=== PATIENT | male | born 1940 | race Asian ===

== ENCOUNTER 2020-12-08 17:25 | Inpatient (IN) | payer MEDICARE, OTHER ==
[~2020-12-08] VITALS: Ht 165.1 cm; Wt 72.6 kg
--- NOTE | 2020-12-08 17:44 | NUR ---
CALLED [facility] [phone] NERI ASHRAF SENT PT PER MEAGHAN SCHWARTZ FOR EVAL.
--- NOTE | 2020-12-08 18:40 | NUR ---
TO ER BED 11,NO APPARENT CHANGE IN CONDITION
[2020-12-08 19:10] LABS: BASOPHILS % (AUTO) 0.6 % (0.0-2.0); EOSINOPHILS % (AUTO) 2.1 % (0.0-6.0); HEMATOCRIT 38 % (33-45); HEMOGLOBIN 12.4 g/dL (11.5-14.8); LYMPHOCYTES # (AUTO) 1.7 K/uL (0.8-4.8); LYMPHOCYTES % (AUTO) 25.6 % (20.0-44.0); MEAN CORPUSCULAR HGB CONC 33 g/dl (31.0-36.0); MEAN CORPUSCULAR VOLUME 92 fL (82-100); MONOCYTES # (AUTO) 0.6 K/uL (0.1-1.30); MONOCYTES % (AUTO) 8.3 % (2.0-12.0); NEUTROPHILS # (AUTO) 4.3 K/uL (1.8-8.9); NEUTROPHILS % (AUTO) 63.4 % (43.0-81.0); PLATELET COUNT (AUTO) 249 K/uL (150-450); RED BLOOD CELL COUNT(AUTO) 4.06 MIL/uL (4.0-5.2); WHITE BLOOD COUNT (AUTO) 6.8 K/uL (4.3-11.0)
[2020-12-08 19:28] LABS: CALCIUM, SERUM 8.6 mg/dL (8.5-10.1); CARBON DIOXIDE 23 mmol/L (21-32); CHLORIDE 106 mmol/L (98-107); CREATININE 1.1 mg/dL (0.6-1.3); GLUCOSE 107 mg/dL (74-106); POTASSIUM 3.9 mmol/L (3.5-5.1); SODIUM SERUM 141 mmol/L (136-145); UREA NITROGEN, BLOOD 13 mg/dL (7-18)
[2020-12-08 19:34] LABS: ALANINE AMINOTRANSFERASE 22 U/L (12-78); ALCOHOL, BLOOD < 3 mg/dL (0-0); ALKALINE PHOSPHATASE 69 U/L (46-116); ASPARTATE AMINOTRANSFERASE 17 U/L (15-37); BILIRUBIN,DIRECT 0.1 mg/dL (0.0-0.2); BILIRUBIN,TOTAL 0.3 mg/dL (0.2-1.0); TOTAL PROTEIN, SERUM 7.5 g/dL (6.4-8.2)
[2020-12-08 19:35] LABS: ACETAMINOPHEN < 2 ug/ml (10-30)
--- NOTE | 2020-12-08 19:38 | NUR ---
pt resting comofrtably in bed breathing even and unlabored vital signs stable
--- NOTE | 2020-12-08 20:02 | NUR ---
URINE SENT TO LAB
[2020-12-08 20:11] LABS: BILIRUBIN,URINE Negative (NEGATIVE); COLOR,URINE YELLOW (YELLOW); LEUKOCYTE ESTERASE ,URINE Negative (NEGATIVE); NITRITE, URINE Negative (NEGATIVE); PROTEIN,URINE Negative (NEGATIVE); UGLUCOSE Negative (NEGATIVE); UROBILINOGEN,URINE 0.2 EU/dL (0.2)
[2020-12-08] MEDS ORDERED: LORAZEPAM INJ 2 MG/ML VIAL ONE (21:56)
[2020-12-08] MEDS ORDERED: LORAZEPAM INJ 2 MG/ML VIAL IM ONE (22:00)
[2020-12-09] MEDS ORDERED: LORAZEPAM INJ 2 MG/ML VIAL ONE (04:48)
[2020-12-09] MEDS ORDERED: LORAZEPAM INJ 2 MG/ML VIAL IM ONE (05:00)
[2020-12-09] MEDS ORDERED: ZIPRASIDONE MESYLATE 20 MG/VIAL VIAL IM ONE ×2 (06:47→07:00)
[2020-12-09] MEDS ORDERED: ASPI-1169 PO (07:43)
[2020-12-09] MEDS ORDERED: SERT25TA5 PO (07:43)
[2020-12-09] MEDS ORDERED: FOLI0.4T6 PO (07:43)
[2020-12-09] MEDS ORDERED: NA P133E RC (07:43)
[2020-12-09] MEDS ORDERED: ACET-868 PO (07:43)
[2020-12-09] MEDS ORDERED: TAMS-12 PO (07:43)
[2020-12-09] MEDS ORDERED: ICOS1CAP PO (07:43)
[2020-12-09] MEDS ORDERED: OLME20TA13 PO (07:43)
[2020-12-09] MEDS ORDERED: ATOR10TA PO (07:43)
[2020-12-09] MEDS ORDERED: BISA10SU11 RC (07:43)
[2020-12-09] MEDS ORDERED: RISP0.2515 PO (07:43)
[2020-12-09] MEDS ORDERED: MAGN400O6 PO (07:43)
[2020-12-09] MEDS ORDERED: CHOL100062 PO (07:43)
[2020-12-09] MEDS ORDERED: FINA5TAB11 PO (07:43)
[2020-12-09] MEDS ORDERED: CRAN425C6 PO (07:43)
[2020-12-09] MEDS ORDERED: PANT40TA2 PO (07:43)
[2020-12-09] MEDS ORDERED: AMLO10TA4 PO (07:43)
[2020-12-09] MEDS ORDERED: LABE100T5 PO (07:43)
[2020-12-09] MEDS ORDERED: LORA-259 PO (07:43)
[2020-12-09] MEDS ORDERED: DIVA125C2 PO (07:43)
[2020-12-09] MEDS ORDERED: DOCU-141 PO (07:43)
--- NOTE | 2020-12-09 08:14 | NUR ---
report given to hipolito caruso. awaiting transfer to floor.
[2020-12-09] MEDS ORDERED: MAGNESIUM HYDROXIDE 30 ML UDC PO PRN (08:30)
[2020-12-09] MEDS ORDERED: MAG HYDROX/AL HYDROX/SIMETH 30 ML UDC PO PRN (08:30)
[2020-12-09] MEDS ORDERED: BLOOD SUGAR DIAGNOSTIC 1 EACH STRIP IN ONE (08:30)
--- NOTE | 2020-12-09 08:32 | NUR ---
PATIENT TRANSFERRED TO FLOOR IN STABLE CONDITION.
--- NOTE | 2020-12-09 10:44 | NUR ---
Treatment Plan: Pt appeared very confused and demented. Pt refused to sign.
--- NOTE | 2020-12-09 11:26 | NUR ---
RN-CO: ADMITTING NOTES., PT CAME [facility] ER, [facility]. Patient per hold and upon face to face evaluation is confuse, disorganize and disoriented. He is agitated, restless, yelling , threw himself on the floor. Pt is unable to follow directions due to confusion.At times he doesn't even reply when called. Ativan 1 mg PO given for restlessness. Dr Colorado seen and examined patient with orders noted and carried out. Son was notified upon his admission. Pt right now is unable to understand simple instructions due to his mental state. Pt's rights was discussed to his son. We will orient pt often to his surroundings. Fashion Consultant is aware that pt is in the unit. Advisement was served and skin assessment was done. We will moniotr q 15 min and ensure pt's safety.
[2020-12-09] MEDS: SERTRALINE HCL 25 MG TABLET PO SCH (11:48)
[2020-12-09] MEDS: GABAPENTIN 100 MG CAPSULE PO SCH ×2 (11:48→21:16)
--- NOTE | 2020-12-09 11:48 | NUR ---
RN-CO: DR BYERS NOTIFIED ABOUT THE ADMISSION AND WAS REQUESTED TO [facility].
[2020-12-09] MEDS: LORAZEPAM 0.5 MG TABLET PO PRN ×2 (13:33→19:45)
[2020-12-09] MEDS ORDERED: OLANZAPINE 10 MG VIAL IM STA (14:04)
--- NOTE | 2020-12-09 14:04 | NUR ---
RN-CO: PT REMAINS AGITATED , BANGING CHAIR AND SCREAMING DESPITE THE ATIVAN GIVEN TO HIM AROUND [address] FERNANDO NOTIFIED AND ORDERED ZYPREXA 5 MG IM STAT, NOTED.
--- NOTE | 2020-12-09 14:42 | NUR ---
SNF Contact: SW spoke with Teresa castellon ([phone]) from [facility] who stated that pt is welcomed back upon discharge.
--- NOTE | 2020-12-09 15:47 | NUR ---
MARAL Family Contact: Senia clinical social worker conducted assessment and brother Sheree ([phone]) requested for SW to speak to patient's daughter Chemo Jones ([phone]). SW notified daughter Chemo in regards to pt's admission and discussed treatment/discharge plan.
[2020-12-09 16:00] VITALS: BP 163/89
--- NOTE | 2020-12-09 16:15 | NUR ---
Initial; Discharge Plan: Pt. currently resides at [facility] [[address] [facility], [place] [address]; ]. Pt. at this time is unable to state if he would like to return there. Per son, Sheree, the family would prefer [facility] as they have family that works there and pt. feels at ease knowing he has family there. SW will continue to collaborate with psychiatrist to plan a safe & proper DC.
[2020-12-09] MEDS: risperiDONE 0.25 MG TABLET PO SCH (16:23)
--- NOTE | 2020-12-09 17:19 | NUR ---
RN-CO: DOC Navdeep NOTIFIED TO [facility].
[2020-12-09] MEDS: LABETALOL HCL (100MG) 100 MG TABLET PO SCH ×2 (18:30→18:55)
[2020-12-09] MEDS ORDERED: BISACODYL SUPP (10 MG) 10 MG/SUPP.RECT SUPP.RECT RC PRN (18:30)
[2020-12-09] MEDS: ASPIRIN 81 MG TAB.CHEW PO SCH (18:43)
[2020-12-09] MEDS: TAMSULOSIN 0.4 MG CAP.SR.24H PO SCH (18:44)
[2020-12-09] MEDS: DOCUSATE SODIUM 100 MG CAPSULE PO SCH (18:44)
[2020-12-09] MEDS: PANTOPRAZOLE 40 MG TABLET.DR PO SCH (18:44)
--- NOTE | 2020-12-09 18:49 | NUR ---
[facility] DONE BOTH NARES.
--- NOTE | 2020-12-09 19:45 | NUR ---
GPS-RN NOTES: ANXIETY PATIENT IS ANXIOUS AND RESTLESS. PRN ATIVAN 1MG PO GIVEN ORDERED. WILL CONTINUE TO MONITOR FOR PT'S SAFETY.
[2020-12-09 20:00] VITALS: BP 151/91
[2020-12-09] MEDS: ATORVASTATIN 10 MG TABLET PO SCH (21:09)
[2020-12-09] MEDS: ZOLPIDEM TARTRATE 5 MG TABLET PO PRN (21:47)
--- NOTE | 2020-12-09 21:47 | NUR ---
GPS-RN NOTES: INSOMNIA PATIENT C/O INABILITY TO SLEEP. PRN AMBIEN 5MG PO ORDERED. WILL CONTINUE TO MONITOR.
--- NOTE | 2020-12-09 22:38 | NUR ---
GPS-RN NOTES: CHEMICAL RESTRAINT PATIENT REMAINS AGITATED, SCREAMING AND YELLING, UNABLE TO REDIRECT BEHAVIOR. DR. FERNANDO NOTIFIED OF PATIENT'S BEHAVIOR AND ORDERED ZYPREXA 10MG IM STAT X ONE, ORDER NOTED AND CARRIED OUT. CHARGE NURSE MADE AWARE. Addendum: 12/09/20 at 9325 by REGINE EVERETT RN PATIENT IS ANXIOUS AND RESTLESS.
[2020-12-09] MEDS ORDERED: OLANZAPINE 10 MG VIAL IM ONE (23:00)
[2020-12-10 08:00] VITALS: BP 143/82
[2020-12-10] MEDS: SERTRALINE HCL 25 MG TABLET PO SCH (08:19)
[2020-12-10] MEDS: GABAPENTIN 100 MG CAPSULE PO SCH ×2 (08:19→21:13)
[2020-12-10] MEDS: risperiDONE 0.25 MG TABLET PO SCH ×2 (08:19→17:01)
[2020-12-10] MEDS: PANTOPRAZOLE 40 MG TABLET.DR PO SCH (08:19)
[2020-12-10] MEDS: FINASTERIDE (5 MG) 5 MG TABLET PO SCH (08:23)
[2020-12-10] MEDS: FOLIC ACID 1 MG TABLET PO SCH (08:23)
[2020-12-10] MEDS: LOSARTAN POTASSIUM 50 MG TABLET PO SCH (08:23)
[2020-12-10] MEDS: CHOLECALCIFEROL 1,000 UNIT TABLET (VIT D3) PO SCH (08:23)
[2020-12-10] MEDS: AMLODIPINE BESYLATE 10 MG TABLET PO SCH (08:23)
[2020-12-10] MEDS: LABETALOL HCL (100MG) 100 MG TABLET PO SCH ×2 (08:24→17:02)
--- NOTE | 2020-12-10 09:00 | NUR ---
RN NOTE- PT AGITATED AT TIMES CONFUSED LABILE NOT DIRECTABLE MED COMPLIANT
[2020-12-10] MEDS: LORAZEPAM 0.5 MG TABLET PO PRN ×2 (10:01→19:52)
--- NOTE | 2020-12-10 10:01 | NUR ---
RN NOTE- SCREAMING AGITATED. ATIVAN 1 MG GIVEN
[2020-12-10 13:41] LABS: ALBUMIN 4.4 g/dL (3.4-5.0); BILIRUBIN,TOTAL 0.5 mg/dL (0.2-1.0); CALCIUM, SERUM 9.1 mg/dL (8.5-10.1); CREATININE 1.3 mg/dL (0.6-1.3); POTASSIUM 3.9 mmol/L (3.5-5.1); TOTAL PROTEIN, SERUM 8.4 g/dL (6.4-8.2)
[2020-12-10 13:54] LABS: CHOLESTEROL 190 mg/dL (<200); HDL CHOLESTEROL 64 mg/dL (40-60); LDL 102 mg/dL (0-99); TRIGLYCERIDES 121 mg/dL (30-150)
[2020-12-10 16:00] VITALS: BP 131/62
[2020-12-10] MEDS: TAMSULOSIN 0.4 MG CAP.SR.24H PO SCH (17:01)
[2020-12-10] MEDS: DOCUSATE SODIUM 100 MG CAPSULE PO SCH (17:01)
[2020-12-10] MEDS: ASPIRIN 81 MG TAB.CHEW PO SCH (17:07)
--- NOTE | 2020-12-10 19:45 | NUR ---
RN NOTE: REFUSED VITALS PATIENT IS AGITATED, ANXIOUS & RESTLESS, REFUSED TO CHECK VITALS, CONFUSED, UNCOOPERATIVE, NON COMPLAINT. PATIENT CONTINUED TO REFUSE VITALS DESPITE OF RISKS & BENEFITS EXPLANATIONS. WILL CONTINUE TO MONITOR.
--- NOTE | 2020-12-10 19:45 | NUR ---
RN NOTE PATIENT'S SON & VISITING HIM AT THIS TIME. PATIENT IS GETTING AGITATED, SCREAMING, LOUD, RESTLESS & ANXIOUS TOWARDS FAMILY. OFFERED PO FLUIDS TO THE PATIENT BROUGHT BY FAMILY, PATIENT TAKING TIME TO DRINK IT & GETS AGITATED INTERMITTENTLY. FAMILY HAS DECIDED TO LEAVE SOON DUE TO PATIENT'S INCREASING AGITATION. WILL CONTINUE TO MONITOR THE PATIENT CLOSELY.
--- NOTE | 2020-12-10 19:55 | NUR ---
RN NOTE: ANXIETY/AGITATION PATIENT IS VERY ANXIOUS, RESTLESS, AGITATED, SCREAMING, YELLING, NON REDIRECTABLE. PRN ATIVAN 1 MG PO ADMINISTERED. WILL CONTINUE TO MONITOR.
[2020-12-10 20:00] VITALS: BP 130/60
[2020-12-10] MEDS: ATORVASTATIN 10 MG TABLET PO SCH (21:46)
[2020-12-10] MEDS: ZOLPIDEM TARTRATE 5 MG TABLET PO PRN (22:09)
--- NOTE | 2020-12-10 22:10 | NUR ---
GPS-RN NOTES: INSOMNIA PATIENT IS UNABLE TO SLEEP. PRN AMBIEN 5MG PO ADMINISTERED ORDERED. WILL CONTINUE TO MONITOR.
[2020-12-10] MEDS ORDERED: OLANZAPINE 10 MG VIAL IM ONE (23:00)
--- NOTE | 2020-12-10 23:18 | NUR ---
GPS/RN NOTE: CHEMICAL RESTRAINT/ZYPREXA IM ONCE PATIENT IS EXTREMELY AGITATED, SCREAMING, YELLING, ANXIOUS, EXTREMELY RESTLESS, OFFERED PO FLUIDS & SNACKS. UNABLE TO REDIRECT PATIENT'S BEHAVIOR. DR. FERNANDO NOTIFIED OF PATIENT'S BEHAVIOR AND ORDERED ZYPREXA 10MG IM STAT X ONE, ORDER NOTED AND CARRIED OUT. CHARGE NURSE IS AWARE. WILL CONTINUE TO MONITOR THE PATIENT FOR ANY CHANGE OF CONDITION.
--- NOTE | 2020-12-11 03:13 | NUR ---
RN NOTE PATIENT HAS BEEN SLEEPING COMFORTABLY SINCE ZYPREXA 10 MG IM ONCE WAS ADMINISTERED. WILL CONTINUE TO MONITOR.
--- NOTE | 2020-12-11 06:53 | NUR ---
RN NOTE PATIENT IS STILL ASLEEP, NO BEHAVIOR EPISODE NOTED AT THIS TIME. WILL ENDORSE TO AM RN FOR CONTINUITY OF CARE.
[2020-12-11] MEDS: CHOLECALCIFEROL 1,000 UNIT TABLET (VIT D3) PO SCH (08:21)
[2020-12-11] MEDS: FINASTERIDE (5 MG) 5 MG TABLET PO SCH (08:21)
[2020-12-11] MEDS: AMLODIPINE BESYLATE 10 MG TABLET PO SCH (08:22)
[2020-12-11] MEDS: LOSARTAN POTASSIUM 50 MG TABLET PO SCH (08:22)
[2020-12-11] MEDS: GABAPENTIN 100 MG CAPSULE PO SCH ×2 (08:22→20:10)
[2020-12-11] MEDS: risperiDONE 0.25 MG TABLET PO SCH ×2 (08:22→17:00)
[2020-12-11] MEDS: FOLIC ACID 1 MG TABLET PO SCH (08:22)
[2020-12-11] MEDS: PANTOPRAZOLE 40 MG TABLET.DR PO SCH (08:22)
[2020-12-11] MEDS: SERTRALINE HCL 25 MG TABLET PO SCH (08:22)
[2020-12-11] MEDS: LABETALOL HCL (100MG) 100 MG TABLET PO SCH ×2 (08:23→17:00)
--- NOTE | 2020-12-11 09:00 | NUR ---
RN NOTE- ASLEEP AT THIS TIME PT AGITATED AT TIMES CONFUSED WHEN AWAKE
[2020-12-11 09:59] VITALS: BP 146/70
--- NOTE | 2020-12-11 15:05 | NUR ---
RN NOTE- PT AWAKE, ATTEMPTED TO GIVE FOOD FLUIDS RX. PT STRUCK OUT, SCREAMING NOT DIRECTABLE. DR FERNANDO ORDERED ZYPREXA 10 IM STAT
[2020-12-11] MEDS ORDERED: OLANZAPINE 10 MG VIAL IM STA (15:17)
--- NOTE | 2020-12-11 15:30 | NUR ---
RN NOTE- ZYPREXA 10 MG IM GIVEN
--- NOTE | 2020-12-11 17:10 | NUR ---
RN NOTE- PT W CONTINUED SCREAMING OVER AND OVER DISRUPTING PATIENTS AND UNIT. DR FERNANDO ORDERED ATIVAN 1 MG IM STAT
--- NOTE | 2020-12-11 17:30 | NUR ---
RN NOTE- ATIVAN 1 MG IM ADMINISTERED
[2020-12-11] MEDS ORDERED: LORAZEPAM INJ 2 MG/ML VIAL IM STA (17:32)
[2020-12-11] MEDS: ASPIRIN 81 MG TAB.CHEW PO SCH (17:52)
[2020-12-11] MEDS: DOCUSATE SODIUM 100 MG CAPSULE PO SCH (17:52)
[2020-12-11] MEDS: TAMSULOSIN 0.4 MG CAP.SR.24H PO SCH (17:53)
[2020-12-11 20:27] VITALS: BP 143/94
[2020-12-11] MEDS: ATORVASTATIN 10 MG TABLET PO SCH (21:06)
[2020-12-11] MEDS: LORAZEPAM 0.5 MG TABLET PO PRN (23:13)
--- NOTE | 2020-12-11 23:13 | NUR ---
RN NOTE: ANXIETY/AGITATION PT APPEARED VERY ANXIOUS, AGITATED, AND RESTLESS. ADMINISTERED ATIVAN 1 MG PO PRN PER ORDER. WILL CONTINUE TO MONITOR PT CLOSELY.
[2020-12-12] MEDS: PANTOPRAZOLE 40 MG TABLET.DR PO SCH (07:30)
[2020-12-12 08:00] VITALS: BP 155/62
[2020-12-12] MEDS: GABAPENTIN 100 MG CAPSULE PO SCH ×2 (09:00→21:03)
[2020-12-12] MEDS: FOLIC ACID 1 MG TABLET PO SCH (09:00)
[2020-12-12] MEDS: FINASTERIDE (5 MG) 5 MG TABLET PO SCH (09:00)
[2020-12-12] MEDS: CHOLECALCIFEROL 1,000 UNIT TABLET (VIT D3) PO SCH (09:00)
[2020-12-12] MEDS: risperiDONE 0.25 MG TABLET PO SCH (09:00)
[2020-12-12] MEDS: SERTRALINE HCL 25 MG TABLET PO SCH (09:00)
--- NOTE | 2020-12-12 10:00 | NUR ---
YELLING OUT CONTINUALLY,NOT COOPERATIVE WITH TAKING MEDS.DR. FERNANDO HERE ON THE FLOOR.INJECTION ORDERED.
--- NOTE | 2020-12-12 10:18 | NUR ---
GIVEN INJECTION OF BENADRYL AND HALDOL PER ORDERS.
[2020-12-12] MEDS ORDERED: diphenhydrAMINE HCL 50 MG/ML VIAL IM ONE ×2 (10:30)
[2020-12-12] MEDS ORDERED: HALOPERIDOL LACTATE INJ 5 MG/ML VIAL IM ONE ×2 (10:30)
[2020-12-12] MEDS: clonazePAM 0.5 MG TABLET PO SCH ×2 (12:16→17:00)
[2020-12-12] MEDS: LABETALOL HCL (100MG) 100 MG TABLET PO SCH ×2 (12:55→17:00)
[2020-12-12] MEDS: AMLODIPINE BESYLATE 10 MG TABLET PO SCH (12:56)
[2020-12-12] MEDS: LOSARTAN POTASSIUM 50 MG TABLET PO SCH (12:57)
[2020-12-12 16:00] VITALS: BP 135/71
[2020-12-12] MEDS: OLANZAPINE ZYDIS 5 MG TAB.RAPDIS PO SCH (17:00)
[2020-12-12] MEDS: ASPIRIN 81 MG TAB.CHEW PO SCH (18:00)
[2020-12-12] MEDS: DOCUSATE SODIUM 100 MG CAPSULE PO SCH (18:00)
[2020-12-12] MEDS: TAMSULOSIN 0.4 MG CAP.SR.24H PO SCH (18:00)
--- NOTE | 2020-12-12 18:05 | NUR ---
RN-NOTES PATIENT REFUSED ALL 1700 MEDICATIONS ,SCREAMING AND YELLING,ALSO REFUSED TO EAT DINNER BUT ABLE TO DRINK WATER. OFFERED X3.
[2020-12-12 19:37] VITALS: BP 109/59
[2020-12-12] MEDS: LORAZEPAM 0.5 MG TABLET PO PRN (20:18)
[2020-12-12] MEDS: ATORVASTATIN 10 MG TABLET PO SCH (21:03)
[2020-12-12] MEDS: ZOLPIDEM TARTRATE 5 MG TABLET PO PRN (21:09)
[2020-12-13] MEDS: LORAZEPAM 0.5 MG TABLET PO PRN ×2 (03:04→22:31)
[2020-12-13] MEDS: PANTOPRAZOLE 40 MG TABLET.DR PO SCH (07:30)
[2020-12-13 08:00] VITALS: BP 139/52
[2020-12-13] MEDS: AMLODIPINE BESYLATE 10 MG TABLET PO SCH ×2 (09:33→12:40)
[2020-12-13] MEDS: OLANZAPINE ZYDIS 5 MG TAB.RAPDIS PO SCH ×3 (09:34→16:31)
[2020-12-13] MEDS: GABAPENTIN 100 MG CAPSULE PO SCH ×3 (09:34→21:04)
[2020-12-13] MEDS: clonazePAM 0.5 MG TABLET PO SCH ×4 (09:34→16:27)
[2020-12-13] MEDS: FINASTERIDE (5 MG) 5 MG TABLET PO SCH ×2 (09:34→12:40)
[2020-12-13] MEDS: CHOLECALCIFEROL 1,000 UNIT TABLET (VIT D3) PO SCH ×2 (09:34→12:40)
[2020-12-13] MEDS: LOSARTAN POTASSIUM 50 MG TABLET PO SCH ×2 (09:34→12:40)
[2020-12-13] MEDS: FOLIC ACID 1 MG TABLET PO SCH ×2 (09:34→12:40)
[2020-12-13] MEDS: LABETALOL HCL (100MG) 100 MG TABLET PO SCH ×3 (09:36→16:55)
[2020-12-13 16:00] VITALS: BP 129/56
[2020-12-13] MEDS: ASPIRIN 81 MG TAB.CHEW PO SCH (16:32)
[2020-12-13] MEDS: DOCUSATE SODIUM 100 MG CAPSULE PO SCH (17:24)
[2020-12-13] MEDS: TAMSULOSIN 0.4 MG CAP.SR.24H PO SCH (17:24)
[2020-12-13 19:30] VITALS: BP 128/64
[2020-12-13] MEDS: ATORVASTATIN 10 MG TABLET PO SCH (21:04)
[2020-12-13] MEDS: ZOLPIDEM TARTRATE 5 MG TABLET PO PRN (23:27)
[2020-12-14] MEDS: PANTOPRAZOLE 40 MG TABLET.DR PO SCH (07:30)
[2020-12-14 08:00] VITALS: BP 148/69
[2020-12-14] MEDS: LOSARTAN POTASSIUM 50 MG TABLET PO SCH (08:23)
[2020-12-14] MEDS: GABAPENTIN 100 MG CAPSULE PO SCH ×2 (08:23→21:26)
[2020-12-14] MEDS: FOLIC ACID 1 MG TABLET PO SCH (08:23)
[2020-12-14] MEDS: clonazePAM 0.5 MG TABLET PO SCH (08:23)
[2020-12-14] MEDS: AMLODIPINE BESYLATE 10 MG TABLET PO SCH (08:23)
[2020-12-14] MEDS: LABETALOL HCL (100MG) 100 MG TABLET PO SCH ×2 (08:24→16:33)
[2020-12-14] MEDS: FINASTERIDE (5 MG) 5 MG TABLET PO SCH (08:24)
[2020-12-14] MEDS: OLANZAPINE ZYDIS 5 MG TAB.RAPDIS PO SCH ×2 (08:24→16:34)
[2020-12-14] MEDS: CHOLECALCIFEROL 1,000 UNIT TABLET (VIT D3) PO SCH (08:24)
[2020-12-14 16:00] VITALS: BP 147/76
[2020-12-14] MEDS: ASPIRIN 81 MG TAB.CHEW PO SCH (17:03)
[2020-12-14] MEDS: TAMSULOSIN 0.4 MG CAP.SR.24H PO SCH (17:03)
[2020-12-14] MEDS: DOCUSATE SODIUM 100 MG CAPSULE PO SCH (17:03)
[2020-12-14 20:00] VITALS: BP 148/78
[2020-12-14 20:10] VITALS: BP 148/78
[2020-12-14] MEDS: ATORVASTATIN 10 MG TABLET PO SCH (21:26)
[2020-12-14] MEDS: ZOLPIDEM TARTRATE 5 MG TABLET PO PRN (22:07)
--- NOTE | 2020-12-14 22:07 | NUR ---
RN NOTE: INSOMNIA PATIENT IS UNABLE TO SLEEP, RESTLESS & ANXIOUS AT THIS TIME. PRN AMBIEN 5MG PO ADMINISTERED ORDERED. WILL CONTINUE TO MONITOR.
[2020-12-15] MEDS: PANTOPRAZOLE 40 MG TABLET.DR PO SCH (07:45)
[2020-12-15 08:00] VITALS: BP 115/55
[2020-12-15] MEDS: FOLIC ACID 1 MG TABLET PO SCH (08:23)
[2020-12-15] MEDS: FINASTERIDE (5 MG) 5 MG TABLET PO SCH (08:24)
[2020-12-15] MEDS: GABAPENTIN 100 MG CAPSULE PO SCH ×2 (08:24→21:05)
[2020-12-15] MEDS: LOSARTAN POTASSIUM 50 MG TABLET PO SCH (08:26)
[2020-12-15] MEDS: LABETALOL HCL (100MG) 100 MG TABLET PO SCH ×2 (08:27→17:08)
[2020-12-15] MEDS: AMLODIPINE BESYLATE 10 MG TABLET PO SCH (08:27)
[2020-12-15] MEDS: OLANZAPINE ZYDIS 5 MG TAB.RAPDIS PO SCH ×3 (08:41→17:08)
[2020-12-15] MEDS: CHOLECALCIFEROL 1,000 UNIT TABLET (VIT D3) PO SCH (08:41)
[2020-12-15] MEDS: LORAZEPAM 0.5 MG TABLET PO PRN (13:07)
--- NOTE | 2020-12-15 14:22 | NUR ---
Court Hearing: Patient's court hearing for 0706 was upheld for GD.
[2020-12-15 16:00] VITALS: BP 140/89
[2020-12-15] MEDS: DOCUSATE SODIUM 100 MG CAPSULE PO SCH (17:08)
[2020-12-15] MEDS: TAMSULOSIN 0.4 MG CAP.SR.24H PO SCH (17:08)
[2020-12-15] MEDS: ASPIRIN 81 MG TAB.CHEW PO SCH (17:08)
[2020-12-15 20:00] VITALS: BP 165/83
[2020-12-15 20:05] VITALS: BP 165/83
[2020-12-15 20:59] VITALS: BP 151/73
[2020-12-15 21:00] VITALS: BP 151/73
[2020-12-15] MEDS: ATORVASTATIN 10 MG TABLET PO SCH (21:30)
[2020-12-15] MEDS: ZOLPIDEM TARTRATE 5 MG TABLET PO PRN (21:40)
--- NOTE | 2020-12-15 21:40 | NUR ---
RN NOTE: INSOMNIA PATIENT IS UNABLE TO SLEEP, RESTLESS AT THIS TIME. PRN AMBIEN 5MG PO ADMINISTERED ORDERED. WILL CONTINUE TO MONITOR.
[2020-12-16] MEDS: ACETAMINOPHEN 325 MG TABLET PO PRN (00:36)
--- NOTE | 2020-12-16 00:36 | NUR ---
RN NOTE: PAIN PATIENT C/O LEFT ARM/SHOULDER PAIN, UNABLE TO SCALE. PRN TYLENOL 650 MG PO ADMINISTERED. WILL CONTINUE TO MONITOR.
[2020-12-16] MEDS: LORAZEPAM 0.5 MG TABLET PO PRN ×3 (01:19→19:44)
--- NOTE | 2020-12-16 01:20 | NUR ---
RN NOTE: ANXIETY PATIENT IS VERY ANXIOUS & RESTLESS, PRN ATIVAN 1 MG PO ADMINISTERED. WILL CONTINUE TO MONITOR.
[2020-12-16] MEDS ORDERED: OLANZAPINE 10 MG VIAL IM ONE (06:00)
--- NOTE | 2020-12-16 06:08 | NUR ---
GPS/RN NOTE: CHEMICAL RESTRAINT/ZYPREXA IM ONCE PATIENT IS EXTREMELY AGITATED, SCREAMING, YELLING, BANGING ON RAMYA CHAIR TRAY, ANXIOUS, EXTREMELY RESTLESS, COMBATIVE TOWARDS STAFF, AGGRESSIVE, PRN ATIVAN 1 MG WAS GIVEN BUT INEFFECTIVE, OFFERED PO FLUIDS & SNACKS. UNABLE TO REDIRECT PATIENT'S BEHAVIOR. DR. FERNANDO NOTIFIED OF PATIENT'S BEHAVIOR AND ORDERED ZYPREXA 10MG IM STAT X ONE, ORDER NOTED AND CARRIED OUT. CHARGE NURSE IS AWARE. WILL CONTINUE TO MONITOR THE PATIENT FOR ANY CHANGE OF CONDITION.
[2020-12-16 08:00] VITALS: BP 129/79
[2020-12-16] MEDS: CHOLECALCIFEROL 1,000 UNIT TABLET (VIT D3) PO SCH (08:23)
[2020-12-16] MEDS: FOLIC ACID 1 MG TABLET PO SCH (08:24)
[2020-12-16] MEDS: GABAPENTIN 100 MG CAPSULE PO SCH ×2 (08:24→21:02)
[2020-12-16] MEDS: LABETALOL HCL (100MG) 100 MG TABLET PO SCH ×2 (08:24→16:25)
[2020-12-16] MEDS: FINASTERIDE (5 MG) 5 MG TABLET PO SCH (08:25)
[2020-12-16] MEDS: LOSARTAN POTASSIUM 50 MG TABLET PO SCH (08:25)
[2020-12-16] MEDS: AMLODIPINE BESYLATE 10 MG TABLET PO SCH (08:26)
[2020-12-16] MEDS: OLANZAPINE ZYDIS 5 MG TAB.RAPDIS PO SCH ×3 (08:26→16:24)
[2020-12-16] MEDS: PANTOPRAZOLE 40 MG TABLET.DR PO SCH (08:59)
[2020-12-16 16:00] VITALS: BP 150/77
[2020-12-16] MEDS: ASPIRIN 81 MG TAB.CHEW PO SCH (17:16)
[2020-12-16] MEDS: DOCUSATE SODIUM 100 MG CAPSULE PO SCH (17:16)
[2020-12-16] MEDS: TAMSULOSIN 0.4 MG CAP.SR.24H PO SCH (17:16)
--- NOTE | 2020-12-16 19:41 | NUR ---
NERI NOTE: ANXIETY PATIENT IS VERY ANXIOUS & RESTLESS, PRN ATIVAN 1 MG PO ADMINISTERED. WILL CONTINUE TO MONITOR. Addendum: 12/16/20 at 1942 by JUAN SAUCEDA RN WRONG CHARTING
--- NOTE | 2020-12-16 19:45 | NUR ---
RN NOTE: ANXIETY PATIENT IS VERY ANXIOUS & RESTLESS, PRN ATIVAN 1 MG PO ADMINISTERED. WILL CONTINUE TO MONITOR.
[2020-12-16 20:00] VITALS: BP 146/75
[2020-12-16] MEDS: ATORVASTATIN 10 MG TABLET PO SCH (21:02)
[2020-12-17] MEDS: ZOLPIDEM TARTRATE 5 MG TABLET PO PRN (02:16)
--- NOTE | 2020-12-17 02:17 | NUR ---
RN NOTES : INSOMNIA PATIENT IS C/O UNABLE TO SLEEP, RESTLESS, ANXIOUS, PRN AMBIEN 5MG PO ADMINISTERED ORDERED AND PER PT. REQUEST. WILL CONTINUE TO MONITOR.
[2020-12-17] MEDS: PANTOPRAZOLE 40 MG TABLET.DR PO SCH (07:53)
[2020-12-17 08:00] VITALS: BP 120/60
[2020-12-17] MEDS: LOSARTAN POTASSIUM 50 MG TABLET PO SCH (08:54)
[2020-12-17] MEDS: LABETALOL HCL (100MG) 100 MG TABLET PO SCH ×2 (08:54→16:38)
[2020-12-17] MEDS: GABAPENTIN 100 MG CAPSULE PO SCH ×2 (08:55→21:26)
[2020-12-17] MEDS: OLANZAPINE ZYDIS 5 MG TAB.RAPDIS PO SCH ×3 (08:55→16:38)
[2020-12-17] MEDS: FOLIC ACID 1 MG TABLET PO SCH (08:55)
[2020-12-17] MEDS: FINASTERIDE (5 MG) 5 MG TABLET PO SCH (08:55)
[2020-12-17] MEDS: CHOLECALCIFEROL 1,000 UNIT TABLET (VIT D3) PO SCH (08:55)
[2020-12-17] MEDS: AMLODIPINE BESYLATE 10 MG TABLET PO SCH (08:56)
[2020-12-17 16:00] VITALS: BP 123/66
[2020-12-17] MEDS: DOCUSATE SODIUM 100 MG CAPSULE PO SCH (17:25)
[2020-12-17] MEDS: ASPIRIN 81 MG TAB.CHEW PO SCH (17:25)
[2020-12-17] MEDS: TAMSULOSIN 0.4 MG CAP.SR.24H PO SCH (17:25)
[2020-12-17] MEDS: LORAZEPAM 0.5 MG TABLET PO PRN (18:10)
--- NOTE | 2020-12-17 18:19 | NUR ---
RN NOTE: ANXIETY PT YELLING AND SCREAMING IN HALLWAY. ADMINISTERED ATIVAN 1MG PRN FOR ANXIETY. WILL MONITOR PT FOR SIDE EFFECTS.
[2020-12-17 20:00] VITALS: BP 117/57
[2020-12-17] MEDS: ATORVASTATIN 10 MG TABLET PO SCH (21:26)
[2020-12-18 08:00] VITALS: BP 110/54
[2020-12-18] MEDS: FOLIC ACID 1 MG TABLET PO SCH (08:08)
[2020-12-18] MEDS: OLANZAPINE ZYDIS 5 MG TAB.RAPDIS PO SCH ×3 (08:08→16:01)
[2020-12-18] MEDS: CHOLECALCIFEROL 1,000 UNIT TABLET (VIT D3) PO SCH (08:08)
[2020-12-18] MEDS: LABETALOL HCL (100MG) 100 MG TABLET PO SCH ×2 (08:09→16:01)
[2020-12-18] MEDS: FINASTERIDE (5 MG) 5 MG TABLET PO SCH (08:09)
[2020-12-18] MEDS: GABAPENTIN 100 MG CAPSULE PO SCH ×2 (08:09→20:43)
[2020-12-18] MEDS: PANTOPRAZOLE 40 MG TABLET.DR PO SCH (08:09)
[2020-12-18] MEDS: AMLODIPINE BESYLATE 10 MG TABLET PO SCH (08:09)
[2020-12-18] MEDS: LOSARTAN POTASSIUM 50 MG TABLET PO SCH (08:10)
[2020-12-18 16:00] VITALS: BP 113/62
[2020-12-18] MEDS: ASPIRIN 81 MG TAB.CHEW PO SCH (16:37)
[2020-12-18] MEDS: DOCUSATE SODIUM 100 MG CAPSULE PO SCH (16:38)
[2020-12-18] MEDS: TAMSULOSIN 0.4 MG CAP.SR.24H PO SCH (16:38)
[2020-12-18 20:00] VITALS: BP 127/63
[2020-12-18] MEDS: ATORVASTATIN 10 MG TABLET PO SCH (21:09)
[2020-12-18] MEDS: LORAZEPAM 0.5 MG TABLET PO PRN (23:30)
[2020-12-19 08:00] VITALS: BP 105/67
[2020-12-19] MEDS: LOSARTAN POTASSIUM 50 MG TABLET PO SCH (08:16)
[2020-12-19] MEDS: LABETALOL HCL (100MG) 100 MG TABLET PO SCH ×2 (08:16→16:40)
[2020-12-19] MEDS: AMLODIPINE BESYLATE 10 MG TABLET PO SCH (08:16)
[2020-12-19] MEDS: CHOLECALCIFEROL 1,000 UNIT TABLET (VIT D3) PO SCH (08:27)
[2020-12-19] MEDS: PANTOPRAZOLE 40 MG TABLET.DR PO SCH (08:27)
[2020-12-19] MEDS: FOLIC ACID 1 MG TABLET PO SCH (08:28)
[2020-12-19] MEDS: OLANZAPINE ZYDIS 5 MG TAB.RAPDIS PO SCH ×3 (08:28→16:40)
[2020-12-19] MEDS: FINASTERIDE (5 MG) 5 MG TABLET PO SCH (08:28)
[2020-12-19] MEDS: GABAPENTIN 100 MG CAPSULE PO SCH ×2 (08:28→21:12)
--- NOTE | 2020-12-19 14:37 | NUR ---
GPS/RN PT REFUSED TO LET CRYPTOGRAPHIC MACHINE OPERATOR TO DRAW BLOOD
[2020-12-19 16:00] VITALS: BP 113/63
[2020-12-19] MEDS: DOCUSATE SODIUM 100 MG CAPSULE PO SCH (16:40)
[2020-12-19] MEDS: ASPIRIN 81 MG TAB.CHEW PO SCH (16:40)
[2020-12-19] MEDS: TAMSULOSIN 0.4 MG CAP.SR.24H PO SCH (16:41)
[2020-12-19 20:00] VITALS: BP 131/68
[2020-12-19 20:15] VITALS: BP 131/68
[2020-12-19 20:15] LABS: BASOPHILS % (AUTO) 0.5 % (0.0-2.0); EOSINOPHILS % (AUTO) 2.8 % (0.0-6.0); HEMATOCRIT 33 % (39-51); HEMOGLOBIN 11.1 g/dL (13.5-17.5); LYMPHOCYTES # (AUTO) 1.7 K/uL (0.8-4.8); LYMPHOCYTES % (AUTO) 22.3 % (20.0-44.0); MEAN CORPUSCULAR HGB CONC 34 g/dl (31.0-36.0); MEAN CORPUSCULAR VOLUME 91 fL (80-96); MONOCYTES # (AUTO) 0.9 K/uL (0.1-1.30); MONOCYTES % (AUTO) 11.7 % (2.0-12.0); NEUTROPHILS # (AUTO) 4.8 K/uL (1.8-8.9); NEUTROPHILS % (AUTO) 62.7 % (43.0-81.0); PLATELET COUNT (AUTO) 214 K/uL (150-450); RED BLOOD CELL COUNT(AUTO) 3.59 MIL/uL (4.5-6.0); WHITE BLOOD COUNT (AUTO) 7.6 K/uL (4.3-11.0)
[2020-12-19 20:49] LABS: BILIRUBIN,TOTAL 0.2 mg/dL (0.2-1.0); CALCIUM, SERUM 8.1 mg/dL (8.5-10.1); CREATININE 1.1 mg/dL (0.6-1.3); MAGNESIUM 2.2 mg/dL (1.8-2.4); POTASSIUM 3.8 mmol/L (3.5-5.1); TOTAL PROTEIN, SERUM 6.6 g/dL (6.4-8.2)
[2020-12-19] MEDS: ATORVASTATIN 10 MG TABLET PO SCH (21:32)
[2020-12-19] MEDS: ZOLPIDEM TARTRATE 5 MG TABLET PO PRN (23:31)
--- NOTE | 2020-12-19 23:36 | NUR ---
RN NOTE: INSOMNIA PATIENT IS UNABLE TO SLEEP, NOTED TO BE SITTING IN BED FREQUENTLY. PRN AMBIEN 5 MG 1 TAB PO ADMINISTERED. WILL CONTINUE TO MONITOR.
[2020-12-20] MEDS: LORAZEPAM 0.5 MG TABLET PO PRN ×2 (03:40→23:19)
--- NOTE | 2020-12-20 03:42 | NUR ---
RN NOTE: ANXIETY PATIENT IS VERY ANXIOUS & RESTLESS, PRN ATIVAN 1 MG PO ADMINISTERED. WILL CONTINUE TO MONITOR.
[2020-12-20 08:00] VITALS: BP 126/57
[2020-12-20] MEDS: FOLIC ACID 1 MG TABLET PO SCH (09:01)
[2020-12-20] MEDS: CHOLECALCIFEROL 1,000 UNIT TABLET (VIT D3) PO SCH (09:01)
[2020-12-20] MEDS: LABETALOL HCL (100MG) 100 MG TABLET PO SCH ×2 (09:01→17:59)
[2020-12-20] MEDS: PANTOPRAZOLE 40 MG TABLET.DR PO SCH (09:01)
[2020-12-20] MEDS: FINASTERIDE (5 MG) 5 MG TABLET PO SCH (09:01)
[2020-12-20] MEDS: AMLODIPINE BESYLATE 10 MG TABLET PO SCH (09:02)
[2020-12-20] MEDS: OLANZAPINE ZYDIS 5 MG TAB.RAPDIS PO SCH ×3 (09:02→17:59)
[2020-12-20] MEDS: LOSARTAN POTASSIUM 50 MG TABLET PO SCH (09:02)
[2020-12-20] MEDS: GABAPENTIN 100 MG CAPSULE PO SCH ×2 (09:02→21:26)
[2020-12-20 16:00] VITALS: BP 126/53
[2020-12-20] MEDS: TAMSULOSIN 0.4 MG CAP.SR.24H PO SCH (17:59)
[2020-12-20] MEDS: DOCUSATE SODIUM 100 MG CAPSULE PO SCH (17:59)
[2020-12-20] MEDS: ASPIRIN 81 MG TAB.CHEW PO SCH (18:00)
[2020-12-20 19:44] VITALS: BP 134/68
[2020-12-20] MEDS: ATORVASTATIN 10 MG TABLET PO SCH (21:26)
--- NOTE | 2020-12-20 23:20 | NUR ---
RN NOTES: ANXIETY PATIENT IS VERY ANXIOUS & RESTLESS,PARANOID,NON REDIRECTABLE, PRN ATIVAN 1 MG PO ADMINISTERED. WILL CONTINUE TO MONITOR.
--- NOTE | 2020-12-20 23:23 | NUR ---
RN NOTES : PT. REFUSED WEEKLY SKIN REASSESSMENT AND PHOTOS TAKEN, ENCOURAGED X3 , RISKS AND BENEFITS EXPLINED ,PT. STRONGLY REFUSED , ,PT. BEHAVIOR UNCCOERTIVE ,EASILY AGITATED AT THIS TIME.
[2020-12-21 08:00] VITALS: BP 145/87
[2020-12-21] MEDS: PANTOPRAZOLE 40 MG TABLET.DR PO SCH (08:17)
[2020-12-21] MEDS: CHOLECALCIFEROL 1,000 UNIT TABLET (VIT D3) PO SCH (08:40)
[2020-12-21] MEDS: FOLIC ACID 1 MG TABLET PO SCH (08:40)
[2020-12-21] MEDS: LABETALOL HCL (100MG) 100 MG TABLET PO SCH ×2 (08:40→16:55)
[2020-12-21] MEDS: GABAPENTIN 100 MG CAPSULE PO SCH ×2 (08:40→20:42)
[2020-12-21] MEDS: FINASTERIDE (5 MG) 5 MG TABLET PO SCH (08:41)
[2020-12-21] MEDS: AMLODIPINE BESYLATE 10 MG TABLET PO SCH (08:41)
[2020-12-21] MEDS: OLANZAPINE ZYDIS 5 MG TAB.RAPDIS PO SCH ×3 (08:41→16:56)
[2020-12-21] MEDS: LOSARTAN POTASSIUM 50 MG TABLET PO SCH (08:41)
--- NOTE | 2020-12-21 09:00 | NUR ---
RN NOTE- RECEIVED PATIENT RESTING IN BED,ALERT ,GUARDED, NO ACUTE DISTRESS NOTED. COMPLIANT WITH DAILY MEDS. NOT AMBULATORY. ALL NEEDS ATTENDED AND ANTICIPATED WILL CONTINUE MONITORING Q15MIN FOR SAFETY AND BEHAVIOR.
--- NOTE | 2020-12-21 10:55 | NUR ---
SW Coordination of Care: SW contacted [facility] ([phone]) and they stated that they are not a locked facility and are not psych focused.
[2020-12-21] MEDS: LORAZEPAM 0.5 MG TABLET PO PRN ×2 (12:05→19:57)
--- NOTE | 2020-12-21 12:05 | NUR ---
RN NOTE- AGITATION NOTED. ATIVAN 1 MG ADMINISTERED
[2020-12-21 16:00] VITALS: BP 140/70
[2020-12-21] MEDS: ASPIRIN 81 MG TAB.CHEW PO SCH (17:05)
[2020-12-21] MEDS: TAMSULOSIN 0.4 MG CAP.SR.24H PO SCH (17:05)
[2020-12-21] MEDS: DOCUSATE SODIUM 100 MG CAPSULE PO SCH (17:05)
[2020-12-21 20:10] VITALS: BP 123/50
[2020-12-21] MEDS: ACETAMINOPHEN 325 MG TABLET PO PRN (20:40)
[2020-12-21] MEDS: ZOLPIDEM TARTRATE 5 MG TABLET PO PRN (21:16)
[2020-12-21] MEDS: ATORVASTATIN 10 MG TABLET PO SCH (21:16)
[2020-12-22] MEDS: PANTOPRAZOLE 40 MG TABLET.DR PO SCH (07:42)
[2020-12-22 08:00] VITALS: BP 135/61
--- NOTE | 2020-12-22 08:23 | NUR ---
Discharge Note: Patient will be discharged to [facility] [address] [facility] [facility], [place] [address] ([phone]). Please arrange ambulance transportation at 1PM. Spoke with Janice, Admin Coordinator at the facility who states they are ready to accept the patient today. Patient is aware and agreeable with discharge plans. Patients ale Aguirre ([phone]) is aware and agreeable. Patient is alert and oriented x1, is unable to plan for self-care at this time, however, is willing to accept care at [facility]. Patient denies any suicidal or homicidal ideation. Patient will follow-up at the facility with Dr. Colorado (psychiatrist) [address] [address]; ([phone]) and (Mattress Filling Machine Tender) Dr. Miner [address], [place] [address]; ([phone]). Patient presents with euthymic mood and congruent affect. Addendum: 12/25/20 at 0812 by MARAL BAIG dc was canceled due to pt being aggressive.
[2020-12-22] MEDS: FOLIC ACID 1 MG TABLET PO SCH (08:51)
[2020-12-22] MEDS: LABETALOL HCL (100MG) 100 MG TABLET PO SCH ×2 (08:52→16:23)
[2020-12-22] MEDS: FINASTERIDE (5 MG) 5 MG TABLET PO SCH (08:52)
[2020-12-22] MEDS: OLANZAPINE ZYDIS 5 MG TAB.RAPDIS PO SCH ×3 (08:52→16:21)
[2020-12-22] MEDS: CHOLECALCIFEROL 1,000 UNIT TABLET (VIT D3) PO SCH (08:52)
[2020-12-22] MEDS: GABAPENTIN 100 MG CAPSULE PO SCH ×2 (08:52→21:06)
[2020-12-22] MEDS: AMLODIPINE BESYLATE 10 MG TABLET PO SCH (08:52)
[2020-12-22] MEDS: LOSARTAN POTASSIUM 50 MG TABLET PO SCH (08:53)
--- NOTE | 2020-12-22 09:00 | NUR ---
RN NOTE- RECEIVED PATIENT RESTING IN BED,ALERT ,GUARDED, NO ACUTE DISTRESS NOTED. COMPLIANT WITH DAILY MEDS. NOT AMBULATORY.ALL NEEDS ATTENDED AND ANTICIPATED WILL CONTINUE MONITORING Q15MIN FOR SAFETY AND BEHAVIOR.
[2020-12-22] MEDS: LORAZEPAM 0.5 MG TABLET PO PRN ×2 (11:05→21:15)
--- NOTE | 2020-12-22 11:05 | NUR ---
RN NOTE- SCREAMING AGITATED. ATIVAN 1 MG ADMINISTERED
[2020-12-22] MEDS ORDERED: OLANZAPINE 10 MG VIAL IM STA (11:13)
--- NOTE | 2020-12-22 11:14 | NUR ---
RN NOTE- PT THREW ATIVAN 1 MG TAB ON FLOOR. SCREAMING . NOT DIRECTABLE. DR FERNANDO NOTIFIED. DC HELD. ZYPREXA 10 MG IM STAT ORDERED
--- NOTE | 2020-12-22 12:20 | NUR ---
RN NOTE- PT CALMER , EATING LUNCH, DIRECTABLE
[2020-12-22 16:00] VITALS: BP 146/78
[2020-12-22] MEDS: DOCUSATE SODIUM 100 MG CAPSULE PO SCH (17:01)
[2020-12-22] MEDS: TAMSULOSIN 0.4 MG CAP.SR.24H PO SCH (17:01)
[2020-12-22] MEDS: ASPIRIN 81 MG TAB.CHEW PO SCH (17:01)
[2020-12-22] MEDS ORDERED: HALOPERIDOL LACTATE INJ 5 MG/ML VIAL IM STA (19:26)
[2020-12-22] MEDS ORDERED: diphenhydrAMINE HCL 50 MG/ML VIAL IM STA (19:26)
--- NOTE | 2020-12-22 19:29 | NUR ---
RN NOTE- PT CANDELARIO GIL,. DR FERNANDO ORDERED HALDOL 5 MG AND BENADRYL 254 Addendum: 12/22/20 at 1930 by CLARICE ARTEAGA RN DR FERNANDO ORDERED HALDOL 5 MG AND BENADRYL 25 MG IM STAT
[2020-12-22 20:00] VITALS: BP 105/49
--- NOTE | 2020-12-22 20:00 | NUR ---
RN NOTE PLACED A CALL TO DR. FERNANDO RE PT'S BEHAVIOR - PT HAS CALMED DOWN AT THIS TIME, NO AGITATION, NO SCREAMING/YELLING NOTED. FLUIDS AND SNACKS OFFERED AND TOLERATED WELL. DR. FRENANDO ORDERED TO DISCONTINUE THE BENADRYL 25MG IM AND HALDOL 5MG IM, AND STATED TO CALL HIM IF NEEDED AGAIN. WILL CONT TO MONITOR PT'S BEHAVIOR.
[2020-12-22] MEDS: ATORVASTATIN 10 MG TABLET PO SCH (21:06)
[2020-12-22] MEDS: ZOLPIDEM TARTRATE 5 MG TABLET PO PRN (22:14)
[2020-12-22] MEDS: ACETAMINOPHEN 325 MG TABLET PO PRN (22:14)
[2020-12-23] MEDS: LORAZEPAM 0.5 MG TABLET PO PRN ×2 (03:05→19:53)
[2020-12-23 08:00] VITALS: BP 115/61
[2020-12-23] MEDS: LABETALOL HCL (100MG) 100 MG TABLET PO SCH ×2 (09:00→16:54)
[2020-12-23] MEDS: LOSARTAN POTASSIUM 50 MG TABLET PO SCH (09:00)
[2020-12-23] MEDS: AMLODIPINE BESYLATE 10 MG TABLET PO SCH (09:00)
[2020-12-23] MEDS: FINASTERIDE (5 MG) 5 MG TABLET PO SCH (10:29)
[2020-12-23] MEDS: CHOLECALCIFEROL 1,000 UNIT TABLET (VIT D3) PO SCH (10:29)
[2020-12-23] MEDS: FOLIC ACID 1 MG TABLET PO SCH (10:29)
[2020-12-23] MEDS: OLANZAPINE ZYDIS 5 MG TAB.RAPDIS PO SCH ×3 (10:29→16:53)
[2020-12-23] MEDS: PANTOPRAZOLE 40 MG TABLET.DR PO SCH (10:30)
[2020-12-23] MEDS: GABAPENTIN 100 MG CAPSULE PO SCH ×3 (13:59→21:12)
[2020-12-23 16:00] VITALS: BP 147/81
[2020-12-23] MEDS: ASPIRIN 81 MG TAB.CHEW PO SCH (16:53)
[2020-12-23] MEDS: TAMSULOSIN 0.4 MG CAP.SR.24H PO SCH (16:54)
[2020-12-23] MEDS: DOCUSATE SODIUM 100 MG CAPSULE PO SCH (16:54)
--- NOTE | 2020-12-23 18:00 | NUR ---
yells out from time to time,med compliant.
--- NOTE | 2020-12-23 19:54 | NUR ---
RN NOTES: ANXIETY PATIENT IS VERY ANXIOUS & RESTLESS,PARANOID,NON REDIRECTABLE, PRN ATIVAN 1 MG PO ADMINISTERED. WILL CONTINUE TO MONITOR.
[2020-12-23 20:00] VITALS: BP 142/70
[2020-12-23] MEDS: ATORVASTATIN 10 MG TABLET PO SCH (21:12)
[2020-12-24 08:00] VITALS: BP 100/52
[2020-12-24] MEDS: OLANZAPINE ZYDIS 5 MG TAB.RAPDIS PO SCH ×3 (08:03→17:12)
[2020-12-24] MEDS: PANTOPRAZOLE 40 MG TABLET.DR PO SCH (08:03)
[2020-12-24] MEDS: FOLIC ACID 1 MG TABLET PO SCH (08:03)
[2020-12-24] MEDS: GABAPENTIN 100 MG CAPSULE PO SCH ×4 (08:03→21:18)
[2020-12-24] MEDS: FINASTERIDE (5 MG) 5 MG TABLET PO SCH (08:04)
[2020-12-24] MEDS: CHOLECALCIFEROL 1,000 UNIT TABLET (VIT D3) PO SCH (08:04)
[2020-12-24] MEDS: LABETALOL HCL (100MG) 100 MG TABLET PO SCH ×2 (08:06→17:13)
[2020-12-24] MEDS: AMLODIPINE BESYLATE 10 MG TABLET PO SCH (08:06)
[2020-12-24] MEDS: LOSARTAN POTASSIUM 50 MG TABLET PO SCH (08:07)
[2020-12-24 16:00] VITALS: BP 128/64
[2020-12-24] MEDS: ASPIRIN 81 MG TAB.CHEW PO SCH (17:11)
[2020-12-24] MEDS: TAMSULOSIN 0.4 MG CAP.SR.24H PO SCH (17:12)
[2020-12-24] MEDS: DOCUSATE SODIUM 100 MG CAPSULE PO SCH (17:12)
[2020-12-24 19:58] VITALS: BP 99/58
[2020-12-24] MEDS: ATORVASTATIN 10 MG TABLET PO SCH (21:12)
[2020-12-25 08:00] VITALS: BP 154/80
--- NOTE | 2020-12-25 08:12 | NUR ---
SW Discharge Note: Patient will be discharged to [facility] [address] [address], [place] [address] ([phone]). Please arrange ambulance transportation at 1PM. Spoke with Janice, Admin Coordinator at the facility who states they are ready to accept the patient today. Patient is aware and agreeable with discharge plans. Patients ale Aguirre ([phone]) is aware and agreeable. Patient is alert and oriented x1, is unable to plan for self-care at this time, however, is willing to accept care at [facility]. Patient denies any suicidal or homicidal ideation. Patient will follow-up at the facility with Dr. Colorado (psychiatrist) [address] [address]; ([phone]) and (Practice Administrator) Dr. Miner [address] [facility] [address], [place] [address]; ([phone]). Patient presents with euthymic mood and congruent affect.
[2020-12-25] MEDS: LOSARTAN POTASSIUM 50 MG TABLET PO SCH (08:45)
[2020-12-25] MEDS: FINASTERIDE (5 MG) 5 MG TABLET PO SCH (08:45)
[2020-12-25 08:46] VITALS: BP 154/80
[2020-12-25] MEDS: OLANZAPINE ZYDIS 5 MG TAB.RAPDIS PO SCH ×2 (08:46→12:26)
[2020-12-25] MEDS: AMLODIPINE BESYLATE 10 MG TABLET PO SCH (08:46)
[2020-12-25] MEDS: FOLIC ACID 1 MG TABLET PO SCH (08:46)
[2020-12-25] MEDS: CHOLECALCIFEROL 1,000 UNIT TABLET (VIT D3) PO SCH (08:46)
[2020-12-25] MEDS: LABETALOL HCL (100MG) 100 MG TABLET PO SCH (08:46)
[2020-12-25] MEDS: GABAPENTIN 100 MG CAPSULE PO SCH ×2 (08:47→12:24)
[2020-12-25] MEDS: PANTOPRAZOLE 40 MG TABLET.DR PO SCH (08:47)
[2020-12-25] MEDS: LORAZEPAM 0.5 MG TABLET PO PRN (11:00)
--- NOTE | 2020-12-25 11:01 | NUR ---
RN NOTES: PATIENT RESTLESS PRN ATIVAN 1 MG PO ADMINISTERED. WILL CONTINUE TO MONITOR.
--- NOTE | 2020-12-25 14:17 | NUR ---
GPS RN NOTE: PATIENT DISCHARGE TO [facility] VIA AMBULANCE REPORT GIVEN TO RN IN THE FACILITY. PATIENT A/OX1, CONFUSED UNABLE TO CARE FOR SELF, NO S/S DISRESS NOTED, COOPERATIVE COMPLIANT WITH MEDICATIONS AND CARE,VSS. ALL BELONGING RETURNED TO PT. EXIT CARE DONE PRINTED PT UNABLE TO SIGN DUE TO ALTERED MENTAL STATUS .PT WILL CONTINUE TO BE IN CARE OF DR. FERNANDO AT THE FACILITY.T.. ORDER TO DISCHARGE PT WITH CONTINUE MEDICATION /DR. VELEZ.DC HOLD.
== END 2020-12-25 13:30 | DRG 885 ==
LOC: ER 17:39 → EDSEX 17:39 → GPS 12-09 08:04
PROVIDERS: ADMIT Psychiatry & Neurology Psychiatry; ATTEND Internal Medicine
DX: F29 Unspecified psychosis not due to a substance or known physiological condition (principal); F03.91 Unspecified dementia, unspecified severity, with behavioral disturbance; G81.90 Hemiplegia, unspecified affecting unspecified side; K21.9 Gastro-esophageal reflux disease without esophagitis; Z86.73 Personal history of transient ischemic attack (TIA), and cerebral infarction without residual deficits; I07.9 Rheumatic tricuspid valve disease, unspecified; N40.0 Benign prostatic hyperplasia without lower urinary tract symptoms; Z87.440 Personal history of urinary (tract) infections; R26.9 Unspecified abnormalities of gait and mobility; F41.9 Anxiety disorder, unspecified; Z73.6 Limitation of activities due to disability; I10 Essential (primary) hypertension; E11.9 Type 2 diabetes mellitus without complications; R53.1 Weakness
CPT/HCPCS: 36415; 80048-TC; 80053-TC; 80061-TC; 80076-TC; 83735-TC; 85025-TC; 87081-TC; 92526; 92611-TC; 97112-TC; 97116-TC; 97530-TC; C9803; G0480; J1200; J1630; J2060; J3486; J3490